=== PATIENT | female | born 2005 | race Caucasian/White ===

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

== ENCOUNTER 2024-02-12 16:49 | Outpatient (CLI) | payer OTHER, SELFPAY ==
--- OUTSIDE RECORDS SUMMARY | 2024-02-12 16:52 | XMS_ITS | Clinical Summary ---
Author Organization [facility] Address [place], [place] [address] Care Team Providers Care Test Facility Engineer Name Role Phone Pcp, No Primary Care Provider Unavailabl e Allergies Active Allergy Reactions Criticality Noted Date Comments Amoxicillin Other - Describe In Comment Field 0 12/09/2012 Puffy eyes Medications Medication Sig Dispensed Refills Start Date End Date Status sertraline (ZOLOFT) 50 mg tablet 03/13/2018 Active buPROPion (WELLBUTRIN XL) 150 mg Extended-Release tablet 01/22/2019 Active sertraline (ZOLOFT) 100 mg tabletIndications:Depr ession, major, in remission (HC) Take 1.5 tablets by mouth every morning. 0 06/18/2019 Active GIANVI, 28, 3-0.02 mg tablet Take 1 tablet by mouth once daily. 04/26/2020 Active hydrOXYzine HCL (ATARAX) 10 mg tablet Take 10 mg by mouth every 6 hours if needed. Active hydrOXYzine HCL (ATARAX) 10 mg tablet Take 10 mg by mouth four times daily. Active Active Problems Problem Noted Date Diagnosed Date Allergic rhinitis, cause unspecified 02/23/2007 Immunizations Name Administration Dates Next Due AMB Influenza, IIV3 (Age >=3 years) Preserve Free (Flu Clinic Only) 07/15/2012,08/01/2011 AMB Influenza, IIV3 (Age >=3 years)(Flu Clinic Only) 07/21/2013,07/14/2009,07/12/2008 AMB Influenza, IIV4 PF (=>6 mos Flulaval,Fluzone Fluarix)(Flu Clinic Only) 07/01/2018,08/01/2015,07/26/2014 DTaP 05/17/2005 RUdZ-NajX-RDP (Pediarix) 2004,2004,0 2004 DTaP-IPV (Kinrix) 2009 HIB HbOC (HibTITER) 2004,2004 HIB PRP-OMP (PedvaxHIB) 05/17/2005,2004, HPV 9 (Gardasil 9) 02/25/2017,07/25/2016, 016 Hepatitis A (Peds) 02/25/2017,05/17/2016 Influenza A (H1N1), Inactivated 09/08/2009,08/11 Influenza, IIV3 (Age 6-35 mos) 2,08/01/2011,06/14/2010,07/20,07/18/2005 Influenza, IIV3 (Age >=3 years) 07/21/20 13,06/14/2010,07/14/2009,07/12,07/20/2007,07/18/2005,2004 Influenza, IIV4 07/13/2019, 7,07/25/2016,08/01,07/26/2014 MMR 2009,02/19/2005 Meningococcal Vaccine (Menveo) 05/17/2016 Pneumococcal conj 7-Valent (Prevnar 7) 0 05/17/2005,2004,2004,04/17 Tdap 05/17/2016 Varicella Vaccine 2009,02/19/2005 Family History Medical History Relation Name Comments Good Health Brother Good Health Father Good Health Mother Blood Disease Other mother current ly being worked up, 04/2016 Anesthesia Problem No Family History Relation Name Status Comments Brother Father Mother Other Social History Tobacco Use Types Packs/Day Years Used Date Smoking Tobacco: Never Smokeless Tobacco: Never Tobacco Cessation:Counseling Given: Yes Comments:no exposure Alcohol Use Standard Drinks/Week Comments No 0 (1 standard drink = 0.6 oz pur e alcohol) PHQ-2 Answer Date Recorded PHQ-2 Score 0 06/18/2019 Social Connections Answer Date Recorded Frequency of Communication with Friends and Fami ly Not on file 05/12/2023 Financial Resource Strain Answer Date R ecorded Difficulty of Paying Living Expenses Not on file 09/22/2021 Difficulty of Paying Living Expenses Not on file 09/22/2021 Sex and Gender Information Value Date Recorded Sex Assigned at Not on file Gender Identity Not on file Sexual Orientation Not on file Obstetrics History Para Term AB IAB SAB Ectopic Multiple Livin g Live Births 0 0 0 0 0 0 0 0 0 0 0 Last Filed Vital Signs Vital Sign Reading Time Taken Comments Blood Pressure 102/68 05/19/2023 7:47 AM CDT Pulse 73 05/19/2023 7:47 AM CDT Temperature 36.9 ??C (98.5 ??F) 05/19/2023 7:47 AM CD T Respiratory Rate 21 07/31/2010 9:35 AM COMMUNITY CULTURAL 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 OFFICER Oxygen Saturation 98% 05/19/2023 7:47 AM CDT Inhaled Oxygen Concentration - - Weight 80.9 kg (178 lb 6.4 oz) 05/19/2023 7:47 A M CDT Height 165.7 cm (5' 5.25) 05/19/2023 7:47 AM CD T Body Mass Index 29.46 05/19/2023 7:47 AM CDT Plan of Treatment Health Maintenance Due Date Last Done Comments Well Child Check for age 3-20 05/17/2017 05/17/2016, 2009, 04/21/2008, Additional history exists HIV for age 15-65 02/14/2019 Depression screening for age 12+ 06/18/2020 06/18/2019, 06/18/2019, 05/17/2016 Hepatitis C screening for age 18-79 02/14/2022 COVID-19 vaccine series (2022- season) 2023 09/17/2021 BMI (ht and wt on same day) for age 18+ 05/19/2024 05/19/2023, 05/12/2023 Influenza for age 9-49 05/23/2024 , 07/01/2018, 06/24/2017, Additional history exists Tetanus booster 05/17/2026 05/17/2016 Pneumococcal series for age 6-64 Aged Out 05/17/2005, 2004, 2004, Additional history exists No longer eligible based on patient's age to complete this topic Meningococcal series for age 11-21 Aged Out 05/17/2016 No longer eligible based on patient's age to complete this topic Tdap Completed 05/17/2016 HPV series for age 9-26 Completed 02/26/20 17, 07/25/2016, 05/17/2016 Care Teams Test Facility Engineer Relationship Specialty Start Date End Date Pcp, No . PCP - General 02/12/21
--- OUTSIDE RECORDS SUMMARY | 2024-02-12 16:52 | XMS_ITS | Clinical Summary ---
Author Organization [facility] Address [address] [place] [address] Care Team Providers Care Pipeline Engineer Name Role Phone Kely Walters M.D. Primary Care Provide r Source Comments Patient records contain information from all sites at [facility]. For routine questions regarding patient records, call [phone] during business hours, M-F 8:00 AM - 5:00 PM Central Time. Record requests for emergency care only can be directed to [phone] at any time.[facility] Allergies Active Allergy Reactions Criticality Noted Date Comments Amoxicillin Hives (Reselect Reac tion),Edema (Reselect Reaction) 07/06/2022 Medications Medication Sig Dispensed Refills Start Date End Date Status hydrOXYzine (ATARAX) 10 mg tablet Take 10 mg by mouth 3 (three) times a day as needed for anxiety. Active fluvoxaMINE (LUVOX) 100 mg tablet Take 1 tablet by mouth daily. 07/14/2023 Active EPINEPHrine 0.3 mg/0.3 mL injection syringe See attached for detailed directions. 04/14/2023 Active hydrOXYzine (VISTARIL) 25 mg capsule TAKE 1-2 CAPSULES UP TO TWICE DAILY NEEDED. 07/15/2023 Active spironolactone (ALDACTONE) 50 mg tablet 06/26/2023 Active ondansetron ODT (ZOFRAN-ODT) 4 mg disintegrating tablet TAKE 1 TABLET PER DAY NEEDED FOR NAUSEA 05/28/2023 Active diclofenac sodium (VOLTAREN) 75 mg EC tablet Take 1 tablet (75 mg total) by mouth 2 (two) times a day. 30 tablet 07/23/2023 Active SUMAtriptan (IMITREX) 50 mg tablet Take 1 tablet (50 mg total) by mouth as needed for migraine. May repeat dose once in 2 hours if migraine is unresolved. 9 tablet 5 07/25/2023 Active fluvoxaMINE (LUVOX CR) 100 mg 24 hr capsule 12/11/2023 Acti ve omeprazole (PriLOSEC) [address] capsule 12/05/2023 Active Active Problems Problem Noted Date Diagnosed Date Obsessive Compulsive Disorder 07/25/2023 Depression Major Recurrent In Remission 07/25/20 23 Anxiety Generalized Disorder 07/25/2023 Migraine Headache 07/25/2023 Acne 07/25/2023 Resolved Problems Problem Noted Date Diagnosed Date Resolved Date Rhinitis Allergic 02/23/2007 07/25/2023 Encounters Date Type Department Care Team Description 12/22/2023 1:20 PM CDT Office Visit Urgent Care in [place], [place] [address] [facility] [place] [address] Anuj Luevano, C.N.P., M.S.N., R.N. Migraine Unspecified Not Intractable With Status Migrainosus (Primary Dx) from Last 3 Months Immunizations Name Administration Dates Next Due influenza vaccine quad (FLUZ ONE/FLUARIX) (6 months and older)(PF) 07/25/2023 Family History Medical History Relation Name Comments Anxiety disorder Brother OCD Brother Anxiety disorder Father Brain Hypertension Father Brain Obesity Father Brain Sleep apnea Father Brain Migraines Maternal Grandmother Anxiety disorder Mother April Depression Mother April OCD Mother April Diabetes Mother's Brother Leukemia Paternal Grandfather Breast cancer Paternal Grandmother Relation Name Status Comments Brother Father Brain Maternal Grandmother Mother April Mother's Brother Paternal Grandfather Paternal Grandmother Social History Tobacco Use Types Packs/Day Years Used Date Smoking Tobacco: Never Smokeless Tobacco: Never Tobacco Cessation:Counseling Given: No Alcohol Use Standard Drinks/Week Comments Yes 10 (1 standard drink = 0.6 oz pu re alcohol) Overall Financial Resource Strain [facility] Answe r Date Recorded How hard is it for you to pa y for the very basics like food, housing, medical care, and heating? Not very hard 07/23/2023 PHQ-2 Answer Date Recorded PHQ-2 Score 0 07/25/2023 Exercise Vital Sign Answer Date Recorde d On average, how many days pe r week do you engage in moderate to strenuous exercise (like a brisk walk)? 4 days 07/23/2023 On average, how many minutes do you engage in exercise at this level? 30 min 07/23/2023 Hunger Vital Sign Answer Date Recorded Within the past 12 months, y ou worried that your food would run out before you got the money to buy more. Never true 07/23/20 Within the past 12 months, t he food you bought just didn't last and you didn't have money to get more. Never true 07/23/2023 PRAPARE - Transportation Answer Date Re corded In the past 12 months, has l ack of transportation kept you from medical appointments or from getting medications? No 09/2022 In the past 12 months, has l ack of transportation kept you from meetings, work, or from getting things needed for daily living? No 07/23/2023 Depression Answer Date Recor ded PHQ-9 Total Score (max 27) 3 07/25 Nutrition Answer Date Recorded Nutrition: EVOO Fat Source Unknown 07/23 On average, how many serving s of fruits and vegetables do you eat per day (serving size is equal to 1 cup or approximately the size of a tennis ball)? 0-2 07/23/2023 Dental Answer Date Recorded Dental: Regular Dentist Yes 07/23/20 Employment Answer Date Recorded Employment status Employed and actively working without restrictions 07/23/2023 Housing Stability Answer Date Recorded What is your living situation today? I have a [facility] place to live 07/23/2023 Sex and Gender Information Value Date Recorded Sex Assigned at Female 07/23/2023 7:30 PM CDT Gender Identity Female 07/23/2023 7:30 PM CDT Sexual Orientation Straight 07/23/2023 7: 30 PM CDT Last Filed Vital Signs Vital Sign Reading Time Taken Comments Blood Pressure 104/60 12/22/2023 1:31 PM CDT Pulse 105 12/22/2023 1:31 PM CDT Temperature 36.5 ??C (97.7 ??F) 12/22/2023 1:31 PM CD T Respiratory Rate 18 12/22/2023 1:31 PM CDT Oxygen Saturation 99% 12/22/2023 1:31 PM CDT Inhaled Oxygen Concentration - - Weight 81.7 kg (180 lb 1.9 oz) 12/22/2023 1:31 P M CDT Height 166.3 cm (5' 5.47) 07/25/2023 8:29 AM CD T Body Mass Index 29.54 07/25/2023 8:29 AM CDT Plan of Treatment Health Maintenance Due Date Last Done Comments Chlamydia and Gonorrhea Screening 2004 HIV Screening 2004 Hearing Screening during Well Child Visit 2004 Hepatitis C Screening 2004 1 week Well Child Check-Up 2004 1 month Well Child Check-Up 2004 2 month Well Child Check-Up 2004 4 month Well Child Check-Up 2004 6 month Well Child Check-Up 2004 9 month Well Child Check-Up 2004 12 month Well Child Check-Up 01/15/2005 15 month Well Child Check-Up 04/16/2005 18 month Well Child Check-Up 07/17/2005 2 year Well Child Check-Up 01/15/2006 30 month Well Child Check-Up 07/17/2006 3 year Well Child Check-Up 01/15/2007 Well Child Check-Up Completed in Past Year 01/15/2007 4 year Well Child Check-Up 01/16/2008 5 year Well Child Check-Up 01/15/2009 6 year Well Child Check-Up 01/15/2010 7 year Well Child Check-Up 01/15/2011 8 year Well Child Check-Up 01/16/2012 9 year Well Child Check-Up 01/15/2013 10 year Well Child Check-Up 01/15/2014 11 year Well Child Check-Up 01/15/2015 12 year Well Child Check-Up 01/16/2016 13 year Well Child Check-Up 01/15/2017 14 year Well Child Check-Up 01/15/2018 15 year Well Child Check-Up 01/15/2019 16 year Well Child Check-Up 01/16/2020 17 year Well Child Check-Up 01/15/2021 18 year Well Child Check-Up 01/15/2022 19 year Well Child Check-Up 01/15/2023 COVID-19 Vaccine ( - 2022-24 season) 2023 09/17/2021, 10/31/2020, 10/18/2020, Additional history exists Depression Monitoring (PHQ-9) 11/23/2023 07/25/2023 20 year Well Child Check-Up 01/16/2024 Well Child Check-Up ([facility]) 01/16/2024 DTaP,Tdap,and Td Vaccines (7 - Td or Tdap) 05/17/2026 05/17/2016, 2009, 05/17/2005, Additional history exists Vision Screening during Well Child Visit 07/18/2027 07/18/2023 Hepatitis B Vaccines Completed 2004, 2004, 2004 Pneumococcal vaccine (0-64 years) Aged Out 05/17/2005, 2004, 2004, Additional history exists No longer eligible based on patient's age to complete this topic MMR Vaccines Completed 2009, 02/19/2005 Varicella Vaccines Completed 2009, 02/19/2005 Meningococcal Vaccine Aged Out 05/17/2016 No christen denice eligible based on patient's age to complete this topic HPV Vaccines Completed 02/25/2017, 11/2015, 05/17/2016 Anemia/Iron Deficiency Screening During Well Child Visit (if High Risk Menstruating Female) Completed 06/18/2019 Influenza Vaccine Completed 07/25/2023, , 07/22/2021, Additional history exists Medical Devices Implanted Type Area Appliance Adjuster Device Identifier Shelf Expiration Date Model / Serial / Lot Subdermal Contraceptive Implant Subdermal Contraceptive Implant Arm Procedures Procedure Name Priority Date/Time Associated Diagnosis Comments EXTI CBC WITH DIFFERENTIAL, B Routine 06/18/2019 9:25 AM CDT from Last 3 Months or Most Recently Relevant to Health Maintenance Care Teams Pipeline Engineer Relationship Specialty Start Date End Date Kely Walters M.D. [address] [place] [id number] PCP - General Family Medicine 08/01/23
--- OUTSIDE RECORDS SUMMARY | 2024-02-12 16:52 | XMS_ITS | Referral Summary ---
Author Organization [facility] Address [address] [place] [address] Care Team Providers Care Sales Planning Coordinator Name Role Phone Kely Walters M.D. Primary Care Provide r Source Comments Patient records contain information from all sites at [facility]. For routine questions regarding patient records, call [phone] during business hours, M-F 8:00 AM - 5:00 PM Central Time. Record requests for emergency care only can be directed to [phone] at any time.[facility] Encounters Date Type Department Care Team Description 12/22/2023 1:20 PM CDT Office Visit Urgent Care in [place], [place] [address] [place] [address] Anuj Luevano, C.N.P., M.S.N., R.N. Migraine Unspecified Not Intractable With Status Migrainosus (Primary Dx) from Last 3 Months Allergies Active Allergy Reactions Criticality Noted Date [...] Date Resolved Date Rhinitis Allergic 02/23/2007 07/25/2023 Immunizations Name Administration Dates Next Due influenza vaccine quad (FLUZ ONE/FLUARIX) (6 months and older)(PF) 07/25/2023 Social History Tobacco Use Types Packs/Day Years Used Date Smoking Tobacco: Never Smokeless Tobacco: Never Tobacco Cessation:Counseling Given: No Alcohol Use Standard Drinks/Week Comments Yes 10 (1 standard drink = 0.6 oz pu re alcohol) Overall Financial Resource Strain (CARDIA) Answe r Date Recorded How hard is [...] your living situation today? I have a [facility] place to live 07/23/2023 Sex and Gender [...] 07/25/2023 8:29 AM CDT Plan of Treatment Not on file Medical Devices Implanted Type Area Seasonal Sales Associate Device Identifier Shelf Expiration Date Model / Serial / Lot Subdermal Contraceptive Implant Subdermal Contraceptive Implant Arm Procedures Procedure Name Priority Date/Time Associated Diagnosis Comments EXTI CBC WITH DIFFERENTIAL, B Routine 06/18/2019 9:25 AM CDT from Last 3 Months or Most Recently Relevant to Health Maintenance Care Teams Sales Planning Coordinator Relationship Specialty Start Date End Date Kely Walters M.D. [address] [place] [phone] PCP - General Family Medicine 08/01/23
--- OUTSIDE RECORDS SUMMARY | 2024-02-12 16:52 | XMS_ITS ---
Author Organization [facility] Address [address] [place] [address] Care Team Providers Care Home Management Supervisor Name Role Phone Unavailable Unavailable Unavailable Surgery Details Not on file Complications Check Surgery Details section. Procedure Estimated Blood Loss Check Surgery Details section. Procedure Findings Check Surgery Details section. Procedure Specimens Taken Check Surgery Details section.
--- OUTSIDE RECORDS SUMMARY | 2024-02-12 16:52 | XMS_ITS | Encounter Summary ---
Author Organization [facility] Address [address] [place] [address] Care Team Providers Care Filter Helper Name Role Phone Kely Walters M.D. Primary Care Provide r Reason for Visit * Reason Comments Migraine Onset of symptoms x Encounter Details Date Type Department Care Team (Late st Contact Info) Description 12/22/2023 1:20 PM CDT Office Visit Urgent Care in [place], [place] [address] [place] [address] Anuj Luevano C.N.P., M.S.N., R.N. [address] [place] [phone] Migraine Unspecified Not Intractable With Status Migrainosus (Primary Dx) Social History Tobacco Use Types Packs/Day Years [...] your living situation today? I have a [facility] place to live 07/23/2023 Sex and Gender Information Value Date Recorded Sex Assigned at Female 07/23/2023 7:30 PM CDT Gender Identity Female 07/23/2023 7:30 PM CDT Sexual Orientation Straight 07/23/2023 7: 30 PM CDT documented as of this encounter Last Filed Vital Signs Vital Sign Reading [...] oz) 12/22/2023 1:31 P M CDT Height - - Body Mass Index 29.54 07/25/2023 8:29 AM CDT documented in this encounter Patient Instructions * Attachments The following attachments cannot be sent through Care Everywhere. * Chronic Migraine Headache ([place]) * Migraine Headache ([place]) documented in this encounter Progress Notes * Anuj Luevano C.N.P., M.S.N., R.N. - 12/22/2023 1:20 PM CDT SUBJECTIVE CHIEF COMPLAINT/REASON FOR VISIT Migraine (Onset of symptoms x ) HISTORY OF PRESENT ILLNESS Migraine Patient presents to urgent care this afternoon with a complaint of a migraine headache that she states has been on going now for 5 days. Patient states she did take her Imitrex yesterday with no improvement. Patient states she did not take 1 this morning. Patient states it is a typical migraine forher. Patient states she does have some nausea but denies any emesis. Patient states her headache atthis time is 03/01. Patient denies any vision changes. OBJECTIVE Vitals: 12/22/23 1331 BP: 104/60 BP Location: Right arm Patient Position: Sitting Cuff Size: Regular Pulse: 105 Resp: 18 Temp: 36.5 ??C TempSrc: Temporal SpO2: 99% Weight: 81.7 kg Body mass index is 29.54 kg/m??. PHYSICAL EXAMINATION Constitutional: Nursing note and vitals reviewed. No distress. HENT: Head: Normocephalic. Mouth/Throat: Mucous membranes are moist. Eyes: Conjunctivae are normal. Pupils are equal, round, and reactive to light. Cardiovascular: Regular rhythm and normal heart sounds. Pulmonary/Chest: Effort normal and breath sounds normal. There is normal air entry. Musculoskeletal: General: Normal range of motion. Neurological: Alert and oriented to person, place, and time. She has normal sensation and cranial nerves II through XII intact. She is not disoriented. GCS eye subscore is 4. GCS verbal subscore is 5. GCS motor subscore is 6. Normal speech. Skin: Skin is warm and dry. Psychiatric: She has a normal mood and affect. Behavior is normal. ASSESSMENT/PLAN #1 Migraine Unspecified Not Intractable With Status Migrainosus - Place peripheral IV No upper extremity site restrictions; Future; Expected date: 12/22/2023 - ondansetron (PF) injection 4 mg (ZOFRAN); 4 mg, intravenous, Once, On Fri12/22/23 at 1415, For 1 dose - ketorolac injection 15 mg (TORADOL); 15 mg, intravenous, Once, On Fri12/22/23 at 1415, For 1 doseDo not administer if recent history of GI bleed or renal insufficiency. The maximum combined durationof treatment (for parenteral and oral) is 5 days; do not increase dose or frequency; supplement with low dose opioids if needed for breakthrough pain. Switch to ibuprofen when tolerating PO, if ordered. Adult IV push rate: Over 15 seconds. Peds IV push rate: Over 1 minute. Doses > 15 mg IV/IM are discouraged due to lack of additional analgesic benefit. - ketorolac injection 15 mg (TORADOL); 15 mg, intravenous, Once, On Fri12/22/23 at 1445, For 1 doseAdult IV push rate: Over 15 seconds. Peds IV push rate: Over 1 minute. Doses > 15 mg IV/IM are discouraged due to lack of additional analgesic benefit. - ketorolac injection 15 mg (TORADOL); 15 mg, intravenous, Once, On Fri12/22/23 at 1500, For 1 doseAdult IV push rate: Over 15 seconds. Peds IV push rate: Over 1 minute. Doses > 15 mg IV/IM are discouraged due to lack of additional analgesic benefit. Other orders - NaCl 0.9 % bolus 1,000 mL; 1,000 mL, intravenous, at 1,000 mL/hr, Administer over 1 Hours, Once, On Fri12/22/23 at 1415, For 1 dose During today's visit patient received 1 L of normal saline. Patient also received IV Toradol and also IV Zofran. Upon reassessment patient verbalizes her pain 4/10 which is an improvement from her 1st score. I did speak to patient that she can continue to use her Imitrex as needed. Also spoke to patient in regards to monitoring her symptoms very closely and if they do return or worsen than she needs to return either back to urgent care or primary care. Patient was given printed patient Education material for migraine headaches. Patient did verbalize understanding with this treatment plan with no questions or concerns. Patient made aware of emergent signs and symptoms and when to seek additional care. Patient encouraged to return to urgent care or their primary care provider if any health questions or concerns persist, worsen, or develop. documented in this encounter Plan of Treatment Not on file documented as of this encounter Visit Diagnoses Diagnosis Migraine Unspecified Not Intractable With Status Migrainosus- Primary documented in this encounter Administered Medications Inactive Administered Medications - up to 3 most recent administrations Medication Order MAR Action Action Date Dose Rate Site ketorolac injection 15 mg (TORADOL) 15 mg, intravenous, Once, On Fri12/22/23 at 1500, For 1 dose, Adult IV push rate: Over 15 seconds. Peds IV push rate: Over 1 minute. Doses > 15 mg IV/IM are discouraged due to lack of additional analgesic benefit. Given 12/22/2023 2:32 PM CDT 15 mg NaCl 0.9 % bolus 1,000 mL 1,000 mL, intravenous, at 1,000 mL/hr, Administer over 1 Hours, Once, On Fri12/22/23 at 1415, For 1 dose New Bag 12/22/2023 2:07 PM CDT 1,000 mL 1000 mL/hr ondansetron (PF) injection 4 mg (ZOFRAN) 4 mg, intravenous, Once, On Fri12/22/23 at 1415, For 1 dose Given 12/22/2023 2:21 PM CDT 4 mg documented in this encounter Additional Health Concerns Assessment Noted Time PHQ-9 Depression Total Score: 3 07/25/20 23 8:21 AM CDT documented as of this encounter Care Teams Filter Helper Relationship Specialty Start Date End Date Kely Walters M.D. [address] [place] [phone] PCP - General Family Medicine 08/01/23 documented as of this encounter
--- NOTE | 2024-02-12 17:00 | CRLHL7_ITS ---
For Patients: As a result of the Century Cures Act, medical imaging exams and procedure reports are released immediately into your electronic medical record. You may view this report before your referring provider. If you have questions, please contact your health care provider. INDICATION: Epigastric pain COMPARISON: none TECHNIQUE: Real time martin scale imaging and color Doppler analysis was performed of the right upper quadrant. FINDINGS: The patient`s liver is of normal size and has a hyperechoic structure within the right hepatic lobe anteriorly measuring 2.3 x 1.4 x 1.2 cm. There is a normal appearance of the hepatic IVC and proximal abdominal aorta. There is no evidence of ascites. The gallbladder is of normal size and there is no evidence of intraluminal stones or sludge. The gallbladder wall measures 2.2 mm in thickness. The common bile duct is of normal size and measures 3.5 mm in diameter at the level of the chrissie hepatis. The pancreas is incompletely visualized. There is no evidence of a stone or hydronephrosis within the right kidney. The right kidney measures 9.5 cm in length. IMPRESSION: Intrahepatic hemangioma measuring 2.3 cm. Remainder of the exam is normal. Dictated by Parvez Crowe MD @ 02/13/2024 1:32:18 PM (Electronically Signed)
== END 2024-02-12 16:50 | disposition home or self-care (01) ==
LOC: US 16:50
PROVIDERS: PCP Nurse Practitioner Family; Visit Provider Nurse Practitioner Family
DX: R10.13 Epigastric pain (principal); D18.09 Hemangioma of other sites
CPT/HCPCS: 76705

== ENCOUNTER 2024-03-02 11:57 | Outpatient (CLI) | payer OTHER, SELFPAY ==
--- NOTE | 2024-03-02 12:00 | CRLHL7_ITS ---
For Patients: As a result of the Century Cures Act, medical imaging exams and procedure reports are released immediately into your electronic medical record. You may view this report before your referring provider. If you have questions, please contact your health care provider. INDICATION: Postprandial/epigastric abdominal pain with nausea. Family history of gallbladder bladder disease. TECHNIQUE : 5.3 mCi Tc-99m labeled Mebrofenin. 1.59 mcg Kinevac IV. FINDINGS: Normal uptake and excretion of tracer by the liver. Activity is identified promptly within the gallbladder and the extrahepatic biliary tree within 5 minutes after injection. The gallbladder continues to fill up to 1 hour. No biliary leak. After the administration of Kinevac, the gallbladder ejection fraction is calculated at 92 percent which is within normal limits. (The patient`s symptoms were reproduced with Kinevac administration, reportedly with pain 03/01). IMPRESSION: 1. Normal HIDA scan. 2. Normal gallbladder ejection fraction. Dictated by Sridhar Pal MD @ 03/02/2024 2:32:37 PM (Electronically Signed)
--- OUTSIDE RECORDS SUMMARY | 2024-03-02 12:00 | XMS_ITS | Referral Summary ---
Author Organization [facility] Address [address] [place] [address] Care Team Providers Care Supervisor Nut Processing Name Role Phone Kely Walters M.D. Primary Care Provide r Source Comments Patient records contain information from all sites at [facility]. For routine questions regarding patient records, call [phone] during business hours, M-F 8:00 AM - 5:00 PM Central Time. Record requests for emergency care only can be directed to [phone] at any time.[facility] Encounters Date Type Department Care Team Description 12/22/2023 1:20 PM CDT Office Visit Urgent Care in [place], [place] [address] [place] [address] Anuj Luevano, C.N.P., M.S.N., R.N. [...] your living situation today? I have a [facility] place to live 07/23/2023 Sex and [...] on file Medical Devices Implanted Type Area Aerospace Manager Device Identifier Shelf Expiration Date Model / Serial / Lot Subdermal Contraceptive Implant Subdermal Contraceptive Implant Arm Procedures Procedure Name Priority Date/Time Associated Diagnosis Comments EXTI CBC WITH DIFFERENTIAL, B Routine 06/18/2019 9:25 AM CDT from Last 3 Months or Most Recently Relevant to Health Maintenance Care Teams Supervisor Nut Processing Relationship Specialty Start Date End Date Kely Walters M.D. [address] [place] [address] PCP - General Family Medicine 08/01/23
--- OUTSIDE RECORDS SUMMARY | 2024-03-02 12:00 | XMS_ITS | Clinical Summary ---
Author Organization [facility] Address [address] [place] [address] Care Team Providers Care Blow Down Operator Name Role Phone Kely Walters M.D. Primary Care Provide r Source Comments Patient records contain information from all sites at [facility]. For routine questions regarding patient records, call [phone] during business hours, M-F 8:00 AM - 5:00 PM Central Time. Record requests for emergency care only can be directed to [phone] at any time.[facility] Allergies Active Allergy Reactions Criticality Noted Date [...] PM CDT Office Visit Urgent Care in [place], [place] [address] [facility] [place] [address] Anuj Luevano, C.N.P., M.S.N., R.N. [...] pu re alcohol) Overall Financial Resource Strain [facility]) Answe r Date Recorded How hard is [...] your living situation today? I have a [facility] place to live 07/23/2023 Sex and [...] Child Check-Up 01/15/2023 COVID-19 Vaccine ( - 2022- season) 2023 09/17/2021, 10/31/2020, 10/18/2020, Additional history [...] patient's age to complete this topic Meningococcal Vaccine Aged Out 05/17/2016 No christen denice eligible based on patient's age to complete this topic HPV Vaccines Completed 02/25/2017, 11/2015, 05/17/2016 Anemia/Iron Deficiency Screening During Well Child Visit (if High Risk Menstruating Female) Completed 06/18/2019 Influenza Vaccine Completed 07/25/2023, , 07/22/2021, Additional history exists Medical Devices Implanted Type Area Dumper Device Identifier Shelf Expiration Date Model / Serial / Lot Subdermal Contraceptive Implant Subdermal Contraceptive Implant Arm Procedures Procedure Name Priority Date/Time Associated Diagnosis Comments EXTI CBC WITH DIFFERENTIAL, B Routine 06/18/2019 9:25 AM CDT from Last 3 Months or Most Recently Relevant to Health Maintenance Care Teams Blow Down Operator Relationship Specialty Start Date End Date Kely Walters M.D. [address] [place] [address] PCP - General Family Medicine 08/01/23
--- OUTSIDE RECORDS SUMMARY | 2024-03-02 12:00 | XMS_ITS | Clinical Summary ---
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 PCP - General 02/12/21
--- OUTSIDE RECORDS SUMMARY | 2024-03-02 12:00 | XMS_ITS ---
Author Organization [facility] Address [address] [place] [address] Care Team Providers Care Buffer Nickel Name Role Phone Unavailable Unavailable Unavailable Surgery Details Not on file Complications Check Surgery Details section. Procedure Estimated Blood Loss Check Surgery Details section. Procedure Findings Check Surgery Details section. Procedure Specimens Taken Check Surgery Details section.
--- OUTSIDE RECORDS SUMMARY | 2024-03-02 12:00 | XMS_ITS | Encounter Summary ---
Author Organization [facility] Address [address] [place] [address] Care Team Providers Care Armhole Presser Name Role Phone Kely Walters M.D. Primary Care Provide r Reason for Visit * Reason Comments Migraine Onset of symptoms x Encounter Details Date Type Department Care Team (Late st Contact Info) Description 12/22/2023 1:20 PM CDT Office Visit Urgent Care in [place], [place] [address] [place] [address] Anuj Luevano C.N.P., M.S.N., R.N. [address] [place] [phone] Migraine Unspecified Not Intractable With Status [...] your living situation today? I have a [facility] place to live 07/23/2023 Sex and Gender [...] through Care Everywhere. * Chronic Migraine Headache ([place]) * Migraine Headache ([place]) documented in this encounter Progress Notes * [...] documented as of this encounter Care Teams Armhole Presser Relationship Specialty Start Date End Date Kely Walters M.D. [address] [place] [address] PCP - General Family Medicine 08/01/23 documented as of this encounter
== END 2024-03-02 11:58 | disposition home or self-care (01) ==
LOC: NM 11:57
PROVIDERS: PCP Nurse Practitioner Family; Visit Provider Nurse Practitioner Family
DX: R10.13 Epigastric pain (principal); R11.0 Nausea
CPT/HCPCS: 78227; A9537; J2805

== ENCOUNTER 2024-04-29 14:58 | Outpatient (CLI) | payer OTHER, SELFPAY ==
--- OUTSIDE RECORDS SUMMARY | 2024-04-29 15:01 | XMS_ITS ---
Author Organization [facility] Address [address] [place] [address] Care Team Providers Care Hydrometeorological Technician Name Role Phone Unavailable Unavailable Unavailable Surgery Details Not on file Complications Check Surgery Details section. Procedure Estimated Blood Loss Check Surgery Details section. Procedure Findings Check Surgery Details section. Procedure Specimens Taken Check Surgery Details section.
--- OUTSIDE RECORDS SUMMARY | 2024-04-29 15:01 | XMS_ITS | Clinical Summary ---
Author Organization [facility] Address [address] [place] [address] Care Team Providers Care Strategic Consultant Name Role Phone Kely Walters M.D. Primary Care Provide r Source Comments Patient records contain information from all sites at [facility]. For routine questions regarding patient records, call [phone] during business hours, M-F 8:00 AM - 5:00 PM Central Time. Record requests for emergency care only can be directed to [phone] at any time.[facility] Allergies Active Allergy Reactions Criticality Noted Date [...] your living situation today? I have a [facility] place to live 07/23/2023 Sex and [...] Child Visit 2004 Hepatitis C Screening 2004 TB Screening during Well Child Visit 2004 1 week Well Child Check-Up 2004 [...] Well Child Check-Up 01/15/2023 COVID-19 Vaccine ( season) 2023 09/17/2021, 10/31/2020, 10/18/2020, Additional history exists Depression Monitoring (PHQ-9) 11/23/2023 07/25/2023 20 year Well Child Check-Up 01/16/2024 Well Child Check-Up ([facility]) 01/16/2024 Influenza Vaccine (#1) 2024 , 06/12/2022, 07/22/2021, Additional history exists DTaP,Tdap,and Td Vaccines (7 - Td or [...] (if High Risk Menstruating Female) Completed 06/18/2019 Medical Devices Implanted Type Area Script Girl Device Identifier Shelf Expiration Date Model / Serial / Lot Subdermal Contraceptive Implant Subdermal Contraceptive Implant Arm Care Teams Strategic Consultant Relationship Specialty Start Date End Date Kely Walters M.D. [address] [place] [address] PCP - General Family Medicine 08/01/23
--- OUTSIDE RECORDS SUMMARY | 2024-04-29 15:01 | XMS_ITS | Referral Summary ---
Author Organization [facility] Address [address] [place] [address] Care Team Providers Care Data Integrity Specialist Name Role Phone Kely Walters M.D. Primary Care Provide r Source Comments Patient records contain information from all sites at [facility]. For routine questions regarding patient records, call [phone] during business hours, M-F 8:00 AM - 5:00 PM Central Time. Record requests for emergency care only can be directed to [phone] at any time.[facility] Allergies Active Allergy Reactions Criticality Noted [...] pu re alcohol) Overall Financial Resource Strain ([facility]) Answe r Date Recorded How hard is [...] money to buy more. Never true 07/23/20 23 Within the past 12 months, t he [...] your living situation today? I have a [facility] place to live 07/23/2023 Sex and [...] on file Medical Devices Implanted Type Area Kinesiotherapist Device Identifier Shelf Expiration Date Model / Serial / Lot Subdermal Contraceptive Implant Subdermal Contraceptive Implant Arm Care Teams Data Integrity Specialist Relationship Specialty Start Date End Date Kely Walters M.D. [address] [place] [address] PCP - General Family Medicine 08/01/23
--- OUTSIDE RECORDS SUMMARY | 2024-04-29 15:01 | XMS_ITS | Clinical Summary ---
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 PCP - General 02/12/21
== END 2024-04-29 14:59 | disposition home or self-care (01) ==
PROVIDERS: PCP Nurse Practitioner Family; Visit Provider Registered Nurse
DX: R53.83 Other fatigue (principal); N93.9 Abnormal uterine and vaginal bleeding, unspecified
CPT/HCPCS: 82306; 84443

== ENCOUNTER 2024-11-18 09:27 | Outpatient (CLI) | payer OTHER, SELFPAY ==
[2024-11-18 15:10] LABS: Chlamydia DNA Amplified* NOT DETECTED (No Detected); GC DNA Amplified* NOT DETECTED (No Detected)
== END 2024-11-18 09:28 | disposition home or self-care (01) ==
PROVIDERS: PCP Nurse Practitioner Family; Visit Provider Nurse Practitioner Family
DX: R53.83 Other fatigue (principal); Z11.3 Encounter for screening for infections with a predominantly sexual mode of transmission; Z13.0 Encounter for screening for diseases of the blood and blood-forming organs and certain disorders involving the immune mechanism
CPT/HCPCS: 80053; 83540; 83550; 85025; 86592; 86703; 86803; 87491; 87529; 87591

== ENCOUNTER 2025-02-16 11:54 | Outpatient (CLI) | payer OTHER, SELFPAY ==
[2025-02-16 14:50] LABS: Bacterial Vaginosis* Negative (Negative); Candida glab/krus NOT DETECTED (No Detected); Candida species NOT DETECTED (No Detected); Trichomonas vaginalis NOT DETECTED (No Detected)
== END 2025-02-16 11:55 | disposition home or self-care (01) ==
PROVIDERS: PCP Nurse Practitioner Family; Visit Provider Registered Nurse
DX: R10.2 Pelvic and perineal pain (principal); Z12.4 Encounter for screening for malignant neoplasm of cervix
CPT/HCPCS: 81513; 87086; 87481; 87624; 87625; 87661; 88141; 88142

== ENCOUNTER 2025-02-18 10:03 | Outpatient (CLI) | payer OTHER, SELFPAY ==
--- NOTE | 2025-02-18 10:00 | CRLHL7_ITS ---
For Patients: As a result of the Century Cures Act, medical imaging exams and procedure reports are released immediately into your electronic medical record. You may view this report before your referring provider. If you have questions, please contact your health care provider. CLINICAL HISTORY: pelvic pain COMPARISON: CT 06/07/2021 TECHNIQUE: 2D martin-scale ultrasound. In addition, color Doppler and spectral Doppler analysis was performed of the pelvis using a transabdominal and transvaginal approach. Transvaginal imaging performed to better visualize the endometrial stripe and ovaries. FINDINGS: The myometrium has a normal uniform echotexture. The uterus measures 8.4 x 2.9 x 3.8 cm. The endometrial lining measures 3.5 mm in thickness. Mild endocervical fluid is present. The right ovary measures 5.7 x 4.0 x 3.9 cm in size and the left ovary measures 1.7 x 2.2 x 1.6 cm. The ovaries demonstrate normal arterial and venous blood flow on color Doppler and spectral Doppler analysis. There are no suspicious fluid collections within the cul-de-sac. Simple circumscribed right ovarian cyst is present which measures 4.9 x 3.3 x 3.4 cm. Small adjacent daughter cyst noted. IMPRESSION: Simple right ovarian cyst measures 4.9 cm. A small associated daughter cyst is present. No torsion. No suspicious findings. No excess pelvic free fluid or uterine fibroid. Dictated by Parvez Crowe MD @ 02/18/2025 11:06:09 AM (Electronically Signed)
== END 2025-02-18 10:04 | disposition home or self-care (01) ==
LOC: US 10:04
PROVIDERS: PCP Nurse Practitioner Family; Visit Provider Registered Nurse
DX: R10.2 Pelvic and perineal pain (principal); N83.291 Other ovarian cyst, right side
CPT/HCPCS: 76830; 76856; 93976